=== PATIENT | female | born 1975 | race Caucasian/White ===

== ENCOUNTER 2017-09-11 08:20 | Emergency (ER) | payer OTHER ==
[~2017-09-11] VITALS: Ht 167.6 cm; Wt 59.5 kg
[~2017-09-11 08:20] MED LIST: CYCL-319 PO; FERR220S15 PO; HYDR-3498 PO
[2017-09-11 08:22] VITALS: Ht 167.6 cm; Wt 59.5 kg
[2017-09-11] MEDS ORDERED: MAGNESIUM CITRATE 300 ML BTL PO ONE (09:00)
[2017-09-11] MEDS ORDERED: GLYCERIN (ADULT) SUPP PR ONE (09:00)
[2017-09-11] MEDS ORDERED: NA PHOSPHATE/BIPHOS 133 ML ENEMA PR ONE (09:00)
--- NOTE | 2017-09-11 09:15 | RADRPT ---
PROCEDURE: XR Abdomen. CLINICAL INDICATION: Constipation for 3 weeks. TECHNIQUE: AP supine abdomen x-ray. COMPARISON: None. FINDINGS: The bowel gas pattern is normal. There is no evidence of obstruction. There are no abnormal calcifications overlying the urinary tracts. The osseus structures are unremarkable. IMPRESSION: 1. Unremarkable abdomen radiograph. RPTAT: QQ .Luis Ryder MD, MD Date Time Electronically viewed and signed by .Luis Ryder MD, on 09/11/2017 09:14 .R/
[2017-09-11] MEDS ORDERED: PSYL1040 PO (09:49)
[2017-09-11] MEDS ORDERED: DOCU-144 PO (09:49)
[2017-09-11] MEDS ORDERED: GLYC1SUP92 PR (09:49)
--- NOTE | 2017-09-11 10:22 | ERD ---
ER Documentation Chief Complaint Chief Complaint NO BOWEL MOVEMENT X 3 WEEKS HPI 41-year-old female history of constipation reports she has not had any bowel movements for the past 3 weeks. She states that she has been straining without any improvement in her symptoms she has tried eating carrots and beans, and try taking Gas-X for her symptoms without relief. She reports bloating and cramping pain in the lower abdominal region pain is worse after she eats. She has not had any fevers or chills or vomiting. She reports she has no difficulty with voiding. Patient normally has bowel movements every 10-14 days and has a history of constipation. She reports positive flatulence. ROS All systems reviewed and are negative except as per history of present illness. Medications Home Meds Active Scripts Psyllium Seed* (Metamucil* Powder) 1,040 Gm Powder, 10 GM PO TID, #1 EA Prov:KEILA PINZON PA-C 09/11/17 Docusate Sodium* (Colace*) 100 Mg Capsule, 100 MG PO BID, #60 CAP Prov:KEILA PINZON PA-C 09/11/17 Glycerin* (Glycerin (Adult)*) 1 Each Supp.rect, 1 EACH [place] DAILY Y for CONSTIPATION, #30 SUPP.RECT Prov:KEILA PINZON PA-C 09/11/17 Cyclobenzaprine Hcl* (Cyclobenzaprine Hcl*) 10 Mg Tablet, 10 MG PO TID, #20 TAB Prov:MARIA G DUKES MD 06/08/16 Hydrocodone Bit-Acetaminophen* (Maple*) 5-325 Mg Tab, 1 TAB PO Q6 Y for PAIN, # 15 TAB Prov:MARIA G DUKES MD 06/08/16 Ferrous Sulfate (Ferrous Sulfate) 220 Mg/5 Ml Solution, 220 MG PO BID for 28 Days, ML Prov:FARIDA MTZ MD 12/03/15 Allergies Allergies: Coded Allergies: No Known Allergy (Unverified , 11/05/16) PMhx/Soc History of Surgery: No Anesthesia Reaction: No Hx Neurological Disorder: No Hx Respiratory Disorders: No Hx Cardiac Disorders: No Hx Psychiatric Problems: No Hx Miscellaneous Medical Probl: No Hx Alcohol Use: No Hx Substance Use: No Hx Tobacco Use: No Smoking Status: Never smoker Physical Exam Vitals Vital Signs Date Time Temp Pulse Resp B/P Pulse Ox O2 Delivery O2 Flow Rate FiO2 09/11/17 08:22 98.6 75 16 119/74 100 Physical Exam General: Well-developed, well-nourished. The patient appears in no acute distress. HEENT: Head is normocephalic, atraumatic. No scleral icterus. Neck: Supple. Nontender. Lungs: Clear to auscultation. Normal air movement. Heart: Regular rate and rhythm. S1 and S2 are normal. No murmurs, gallops, or rubs. Abdomen: Soft, lower quadrants are distended, there is no tenderness with palpation, no masses appreciated, no hepatosplenomegaly, nondistended. Bowel sounds are normoactive. Extremities: No clubbing or cyanosis. Normal pulses. Moving extremities x 4. No weakness. Neurologic: Alert and oriented 3. No focal deficits. Skin: Normal turgor. No rash or lesions. Results 24 hrs Current Medications Medications (Trade) Dose Ordered Sig/Zulma Route PRN Reason Start Time Stop Time Status Last Admin Dose Admin Magnesium Citrate (Citroma) 300 ml ONCE ONCE PO 09/11/17 09:00 09/11/17 09:01 DC 09/11/17 09:23 Glycerin (Glycerin (Adult)) 1 supp ONCE ONCE [place]Y 09/11/17 09:00 09/11/17 09:00 DC Sodium Biphosphate/ Sodium Phosphate (Fleet Enema) 133 ml ONCE ONCE [place]Y 09/11/17 09:00 09/11/17 09:01 DC 09/11/17 09:23 DIAGNOSTIC IMAGING REPORT Patient: SAMIR DONG : 1975 Age: 42 Sex: F MR #: [id number] DOS: 09/11/1731 Ordering MD: KEILA PINZON PA-C Location: [facility] Room/Bed: PROCEDURE: XR Abdomen. CLINICAL INDICATION: Constipation for 3 weeks. TECHNIQUE: AP supine abdomen x-ray. COMPARISON: None. FINDINGS: The bowel gas pattern is normal. There is no evidence of obstruction. There are no abnormal calcifications overlying the urinary tracts. The osseus structures are unremarkable. IMPRESSION: 1. Unremarkable abdomen radiograph. RPTAT: QQ .Maria G Ryder MD, Date Time Electronically viewed and signed by .Maria G Ryder MD, on 09/11/2017 09:14 .R/ CC: KEILA PINZON PA-C Procedures/[facility] ED course: Patient self-administered an enema, she also was given magnesium citrate and was able to have a moderate-sized bowel movement in the emergency room. Medical decision makin-year-old female comes in with constipation, there is to have a history of constipation has not tried any stool softeners for any laxative agents. She was medicated here and was advised that she will most likely have a larger problem after returning home. Clinically she has normal active bowel sounds, reports positive flatulence and KUB is most consistent with constipation. There are no signs of obstruction, volvulus, pelvic ileus. Clinically abdominal termination is benign, there is some distention of the lower quadrants likely due to the stool contents. She will be given Colace, as well as Metamucil and glycerin suppositories to use at home. Departure Diagnosis: Primary Impression: Constipation Condition: Good Patient Instructions: Constipation (Adult) KEILA PIZNON PA-C Sep 11, 2017 10:21
== END 2017-09-11 09:56 | disposition home or self-care (01) ==
LOC: FTE 08:20
DX: K59.00 Constipation, unspecified (principal)
CPT/HCPCS: 74000; Z7502; Z7610

== ENCOUNTER 2018-03-22 14:39 | Emergency (ER) | END 2018-03-22 19:20 | disposition home or self-care (01) ==

== ENCOUNTER 2018-03-25 10:44 | Emergency (ER) | END 2018-03-25 18:30 | disposition short-term general hospital (02) ==